=== PATIENT | female | born 1985 | race Caucasian/White ===

== ENCOUNTER 2018-06-27 09:00 | Day surgery (SDC) | payer OTHER ==
[2018-06-27] VITALS (9 sets, daily range): BP systolic 121–134; BP diastolic 69–90
[~2018-06-27] VITALS: Ht 160 cm; Wt 55.0 kg
[~2018-06-27 09:00] MED LIST: BUPR1FIL3 SL; LIDOcaine 0.5% (5mg/ml) 50ml vial ONE; albuterol 2.5 MG/3 ML nebule NEB ONE; ceFAZolin 1GM/D5W- ADD-VANTAGE 50 ML IV ONE; famotidine 20mg tablet PO ONE; fentaNYL/PF 50MCG/1 ML 2ML syringe IV PRN; hydrALAZINE 20mg/ml inj. IV PRN; labetalol 20mg/4ml (5mg/ml) syringe IV PRN; morphine 4 MG/ML inj SYRINge IV PRN; ondansetron/PF 4mg/2ml inj IV PRN; ringers solution, lacted 1,000 ML IV SCH
[2018-06-27 10:39] LABS: BASOPHILS % (AUTO) 0.3 % (0-1); EOSINOPHILS % (AUTO) 0.6 % (0-6); LYMPHOCYTES # (AUTO) 1.5 X10'3 (1.1-4.8); LYMPHOCYTES % (AUTO) 26.8 % (21-51); MEAN CORPUSCULAR HEMOGLOBIN 28.8 PG (27.0-31.0); MEAN CORPUSCULAR VOLUME 89.9 FL (78-98); MEAN PLATELET VOLUME 10.2 FL (7.4-10.4); MONOCYTES # (AUTO) 0.4 X10'3 (0-0.9); MONOCYTES % (AUTO) 7.6 % (2-12); NEUTROPHILS # (AUTO) 3.8 X10'3 (1.8-7.7); NEUTROPHILS % (AUTO) 64.7 % (42-75); PRE OP HEMATOCRIT 38.5 % (35.0-45.0); PRE OP HEMOGLOBIN 12.3 g/dL (12.0-16.0); PRE OP PLATELET COUNT 194 X10'3 (140-440); RED BLOOD COUNT 4.28 X10'6 (4.20-5.60); RED CELL DISTRIBUTION WIDTH 12.6 % (11.5-14.5)
[2018-06-27 10:56] LABS: ALBUMIN 4.1 G/DL (3.4-5.0); ALBUMIN/GLOBULIN RATIO 1.1 (1.1-1.5); ALKALINE PHOSPHATASE 71 IU/L (46-116); BLOOD UREA NITROGEN 15 MG/DL (7-18); BUN/CREATININE RATIO 16.9 (6.6-38.0); CALCIUM 8.7 MG/DL (8.5-10.1); CHLORIDE 103 MMOL/L (99-107); CREATININE 0.89 MG/DL (0.40-0.90); PRE OP ALT 34 U/L (30-65); PRE OP ANION GAP 9 (8-16); PRE OP AST 28 U/L (10-37); PRE OP BILIRUB, TOTAL 0.6 MG/DL (0.0-1.0); PRE OP GLUCOSE 82 MG/DL (70-104); PRE OP POTASSIUM 3.9 MMOL/L (3.4-5.1); PRE OP SODIUM 139 MMOL/L (135-145); eGFR 73 ML/MIN
[2018-06-27 10:57] LABS: HCG SERUM QL NEGATIVE
[2018-06-27] MEDS ORDERED: propofol 10mg/ml 20ml vial IV ONE (11:51)
[2018-06-27] MEDS ORDERED: BUPIVAcaine/PF 2.5mg/ml (0.25%) 10ml vial ONE (11:53)
[2018-06-27] MEDS ORDERED: fentaNYL/PF 50MCG/1 ML 2ML syringe ONE (11:57)
[2018-06-27] MEDS ORDERED: midazolam 2 mg/2 ml injection ONE (11:57)
[2018-06-27] MEDS ORDERED: ketorolac trometh. 30mg/ml inj. ONE (12:11)
--- NOTE | 2018-06-27 12:45 | NUR ---
Received from OR via BED, accompanied by Anesthesiologist DR FINK and report given by Anesthesiolgist. PATIENT A&OX4, DENIES PAIN, V/S WNL, NEUROVASCULAR CHECKS INTACT, 20G PIV RUE, SCD ON, DRESSING SPLINT TO LEFT WRIST CDI ELEVATED WITH ICEBAG APPLIED.
--- NOTE | 2018-06-27 13:45 | NUR ---
PATIENT A&OX4, DENIES PAIN, V/S WNL, NEUROVASCULAR CHECKS INTACT, 20G PIV RUE D/C, SCD OFF, DRESSING TO LEFT WRIST CDI ELEVATED WITH ICEBAG APPLIED. I HAVE REVIEWED D/C INSTRUCTIONS WITH PATIENT AND FAMILY AND THEY HAVE VERBALIZED UNDERSTANDING. PATIENT D/C HOME WITH ALL BELONGINGS AND FAMILY GAVE TRANSPORT HOME.
== END 2018-06-27 13:45 | disposition home or self-care (01) ==
LOC: PAS 09:00
PROVIDERS: ATTEND Orthopaedic Surgery Hand Surgery
DX: S64.493A Injury of digital nerve of left middle finger, initial encounter (principal); S66.123A Laceration of flexor muscle, fascia and tendon of left middle finger at wrist and hand level, initial encounter; W25.XXXA Contact with sharp glass, initial encounter; Y93.89 Activity, other specified; Y92.89 Other specified places as the place of occurrence of the external cause; Y99.8 Other external cause status; F17.210 Nicotine dependence, cigarettes, uncomplicated
CPT/HCPCS: 26350; 36415; 80053; 82948; 84703; 85025; A6222; A6449; J0690; J1885; J2001; J2250; J2704; J3010; J3490; A7000; J7120

== ENCOUNTER 2019-05-24 19:09 | Emergency (ER) | payer OTHER ==
[~2019-05-24] VITALS: Ht 160 cm; Wt 61.4 kg
[~2019-05-24 19:09] MED LIST changes: -LIDOcaine 0.5% (5mg/ml) 50ml vial ONE; -albuterol 2.5 MG/3 ML nebule NEB ONE; -ceFAZolin 1GM/D5W- ADD-VANTAGE 50 ML IV ONE; -famotidine 20mg tablet PO ONE; -fentaNYL/PF 50MCG/1 ML 2ML syringe IV PRN; -hydrALAZINE 20mg/ml inj. IV PRN; -labetalol 20mg/4ml (5mg/ml) syringe IV PRN; -morphine 4 MG/ML inj SYRINge IV PRN; -ondansetron/PF 4mg/2ml inj IV PRN; -ringers solution, lacted 1,000 ML IV SCH
[2019-05-24 20:54] VITALS: BP 145/93
== END 2019-05-24 20:55 | disposition home or self-care (01) ==
LOC: ER 19:09
DX: Z02.89 Encounter for other administrative examinations (principal); F11.90 Opioid use, unspecified, uncomplicated; F12.90 Cannabis use, unspecified, uncomplicated
CPT/HCPCS: 99281